=== PATIENT | male | born 1965 | race Caucasian/White ===

== ENCOUNTER 2018-11-27 21:51 | Emergency (ER) | payer OTHER ==
[~2018-11-27] VITALS: Ht 182.9 cm; Wt 124.7 kg
[2018-11-27] MEDS ORDERED: NEXIUM40 MG (22:01)
[2018-11-27 22:38] LABS: ABSOLUTE BASOPHILS 0.1 thou/uL (0.0-0.2); ABSOLUTE EOSINOPHILS 0.2 thou/uL (0.0-0.7); ABSOLUTE LYMPHOCYTES 3.7 thou/uL (0.8-5.3); ABSOLUTE MONOCYTES 0.8 thou/uL (0.0-1.2); ABSOLUTE NEUTROPHILS 6.6 thou/uL (1.6-8.1); BASOPHILS 0.8 %; HEMATOCRIT 43.8 % (42.0-52.0); LYMPHOCYTES 32.3 %; MCH 32.1 pg (26.0-34.0); MCHC 34.3 g/dL (28.0-37.0); MCV 93.7 fL (80.0-100.0); MONOCYTES 6.9 %; MPV 9.7 fl. (7.2-11.1); NUCLEATED RBCS 0 /100WBC; PLATELET COUNT* 252 thou/uL (150-400); RBC 4.67 mil/uL (4.50-6.00); WBC 11.4 thou/uL (4.0-11.0)
[2018-11-27 22:43] LABS: ANION GAP 10 mmol/L (7-16); BUN 16 mg/dL (7-18); CALCIUM 8.6 mg/dL (8.5-10.1); CHLORIDE 105 mmol/L (98-107); CO2 26 mmol/L (21-32); CREATININE 1.1 mg/dL (0.6-1.3); GLUCOSE 163 mg/dL (70-99); POTASSIUM 3.8 mmol/L (3.5-5.1); SODIUM 141 mmol/L (136-145)
[2018-11-27 22:52] LABS: ALBUMIN 3.6 g/dL (3.4-5.0); ALKALINE PHOSPHATASE 94 U/L (46-116); SGPT 41 U/L (30-65); TOTAL BILIRUBIN 0.4 mg/dL (<0.1-1.0); TOTAL PROTEIN 6.6 g/dL (6.4-8.2); TROPONIN-I LEVEL <0.06 ng/mL (<0.06)
[2018-11-27 23:25] LABS: URINE BILIRUBIN NEGATIVE (Negative); URINE BLOOD NEGATIVE (Negative); URINE CLARITY CLEAR; URINE COLOR STRAW; URINE GLUCOSE-RANDOM NEGATIVE (Negative); URINE KETONES NEGATIVE (Negative); URINE LEUKOCYTES-REFLEX NEGATIVE (Negative); URINE NITRITE-REFLEX NEGATIVE (Negative); URINE PROTEIN NEGATIVE (Negative); URINE SPECIFIC GRAVITY <= 1.005 (1.005-1.030); URINE UROBILINOGEN 0.2 E.U./dl (0.2-1.0)
[2018-11-27 23:28] LABS: SGOT 25 U/L (15-37)
[2018-11-27] MEDS ORDERED: OMEPRAZOLE 20 M20 M1 PO ×2 (23:33→23:35)
[2018-11-27] MEDS ORDERED: ACETAMINOPHEN-1 EAC1 PO (23:33)
[2018-11-27] MEDS ORDERED: MAGIC MOUTHWASH SW&SWALLOW (23:42)
[2018-11-27 23:52] VITALS: BP 115/83
== END 2018-11-27 23:53 | disposition home or self-care (01) ==
LOC: M.ERS 21:51
PROVIDERS: Physician Assistant
DX: R10.31 Right lower quadrant pain (principal); R10.32 Left lower quadrant pain; K21.9 Gastro-esophageal reflux disease without esophagitis

== ENCOUNTER 2020-05-13 10:20 | Emergency (ER) | payer OTHER ==
[~2020-05-13] VITALS: Ht 185.4 cm; Wt 83.9 kg
[~2020-05-13 10:20] MED LIST: ACETAMINOPHEN-1 EAC1 PO; MAGIC MOUTHWASH SW&SWALLOW; NEXIUM40 MG; OMEPRAZOLE 20 M20 M1 PO
[2020-05-13 11:39] LABS: ABSOLUTE MONOCYTES 0.7 thou/uL (0.0-1.2); ABSOLUTE NEUTROPHILS 5.4 thou/uL (1.6-8.1); BASOPHILS 0.5 %; HEMATOCRIT 48.7 % (42.0-52.0); HEMOGLOBIN 16.8 gm/dL (14.0-18.0); LYMPHOCYTES 13.6 %; MCH 31.2 pg (26.0-34.0); MCHC 34.5 g/dL (28.0-37.0); MCV 90.5 fL (80.0-100.0); MONOCYTES 9.7 %; MPV 9.6 fl. (7.2-11.1); NUCLEATED RBCS 0 /100WBC; PLATELET COUNT* 166 thou/uL (150-400); POLYS 76.2 %; RBC 5.38 mil/uL (4.50-6.00); RDW-CV 12.8 % (10.5-14.5)
[2020-05-13 12:18] LABS: CREATININE 1.3 mg/dL (0.6-1.3); POTASSIUM 3.4 mmol/L (3.5-5.1)
[2020-05-13 12:23] LABS: ALBUMIN 3.4 g/dL (3.4-5.0); TOTAL BILIRUBIN 0.8 mg/dL (<0.1-1.0); TOTAL PROTEIN 7.3 g/dL (6.4-8.2)
[2020-05-13] MEDS ORDERED: VENTOLIN HFA 1818 GM INH (12:44)
[2020-05-13] MEDS ORDERED: PREDNISONE 10 M10 MG PO (12:44)
[2020-05-13] MEDS ORDERED: ONDANSETRON HCL4 M2 PO (12:44)
[2020-05-13] MEDS ORDERED: BENTYL 20 MG TA20 M1 PO (12:44)
[2020-05-13] MEDS ORDERED: ZPAK PO (12:44)
[2020-05-13 13:19] VITALS: BP 109/69
== END 2020-05-13 13:20 | disposition home or self-care (01) ==
LOC: M.ERS 10:20
PROVIDERS: Nurse Practitioner Family
DX: U07.1 COVID-19 (principal); E87.1 Hypo-osmolality and hyponatremia; K21.9 Gastro-esophageal reflux disease without esophagitis